=== PATIENT | male | born 1970 | race African-American/Black ===

== ENCOUNTER 2024-09-14 15:39 | Emergency (ER) | payer MEDICAID, SELFPAY ==
[2024-09-14 15:41] VITALS: BP 148/107; PULSE 74; RESP 16; TEMP 36.6; O2SAT 98; BMI 32.6
--- NOTE | 2024-09-14 16:12 | EX.ED.VIS.EY ---
HPI <ENZO Clark - Last Filed: 09/14/24 18:18> History of Present Illness Chief Complaint: Eye Problem Narrative Narrative: Patient presenting today with bilateral eye redness, pain, and clear-colored discharge. He reports that he developed itchiness to his bilateral eyes at the beginning of August, he saw his business excellence leader on 08/27 who thought that he could be having an allergic reaction to one of the eyedrops he uses for his cataracts, they then switched to the medication. Around the second week of August his eyes became red and he had increased clear discharge, he went to urgent care and was diagnosed with conjunctivitis and was placed on ofloxacin drops which he has been taking for a week. He reports that he did see his eye doctor again earlier this week who told him to continue taking the eyedrops but overall were not too concerned. He followed back up at urgent care today because he has had no improvement of his symptoms and they encouraged him to come here for evaluation. He does not wear contact lenses. He reports slight pain and blurred vision to the right eye. [facility] <ENZO Clark - Last Filed: 09/14/24 18:18> [facility] Medical History Diabetes HTN (hypertension) Heart disease Home Medications ?Medication ?Instructions ?Recorded ?Last Taken ?Type hydrocodone-acetaminophen 5-325mg 1 tab PO Q4H PRN PRN Pain 2 days 09/14/24 Unknown Rx 5mg-325mg #6 TABLETS hydrocodone-acetaminophen 5-325mg 1 tab PO Q4H PRN PRN Pain 2 days 09/14/24 Unknown Rx 5mg-325mg #6 TABLETS Allergy/AdvReac Type Severity Reaction Status Date / Time bee pollen Allergy Intermediate Anaphylaxis Verified 09/14/24 15:40 Social History Smoking Status: Former smoker ROS <ENZO Clark - Last Filed: 09/14/24 18:18> ROS ED Constitutional Constitutional ED: Denies chills, fever(s) or sweats Eyes Eyes: Reports blurry vision; Denies diplopia Cardiovascular Cardiovascular: Denies chest pain Respiratory/Chest Respiratory/Chest: Denies dyspnea Gastrointestinal Gastrointestinal: Denies abdominal pain, nausea or vomiting Musculoskeletal Musculoskeletal: Denies arthralgias or myalgias Integumentary Denies rash Neurologic Neurologic: Denies weakness EXAM <ENZO Clark - Last Filed: 09/14/24 18:18> Physical Exam Const Vital Signs: 09/14/24 15:41 Temperature 97.8 F Temperature Source Temporal Pulse Rate 74 Respiratory Rate 16 Blood Pressure 148/107 H Blood Pressure Mean 120 Pulse Ox 98 Oxygen Delivery Method Room Air Positive well nourished, well developed and no apparent distress General Appearance ED: well developed HEENT Reports normocephalic and head/scalp atraumatic HEENT Narrative: Bilateral conjunctival injection, clear-colored discharge to the bilateral eyes, EOMs intact bilaterally, no periorbital edema or erythema. Mouth ED: Yes moist mucous membranes normal Eyes PERRL and EOMs intact bilaterally Neck full ROM and supple Chest Wall inspection of chest normal Resp normal respiratory effort and clear to auscultation bilaterally Cardio regular rate and regular rhythm GI soft to palpation, non-tender, non-distended and no masses Back/Spine normal ROM and normal to inspection Extremity normal to inspection and full ROM Neuro oriented x3, CN's II-XII intact bilaterally, moves all extremities, no focal motor deficits and no sensory deficits noted Sensorium / Orientation: awake and alert Psych mental status grossly normal and thought process normal Skin no rashes or lesions noted and no wounds MDM <ENZO Clark - Last Filed: 09/14/24 18:18> [facility] MDM Narrative Medical decision making narrative: Patient presenting today due to concerns for erythema and increased watery discharge to the bilateral eyes. He has seen his eye doctor for this, they thought that he was possibly having an allergic reaction and switched one of his eyedrop medications. He then saw urgent care once his eyes became red and he began having discharge and they treated him for conjunctivitis with ofloxacin drops which she has been taking for a week. His symptoms have not gotten any better and they recommended he come in today for evaluation. CT scan of the orbits will be obtained, we will speak with ophthalmology. He reports that his eye pressures were checked earlier this week and were normal. Visual acuity was checked here, it was 20/30 on the right, 20/15 on the left, 20/[address] scan shows mild right facial and right periorbital subcutaneous edema. I did speak with on-call business excellence leader, Dr. Juarez, he recommended that patient be seen tomorrow by either his business excellence leader or him. I then spoke with a doctor from [facility] where patient goes, they are able to see him tomorrow. He will be discharged home in stable condition. I have personally performed a face to face assessment of the patient and have reviewed the DEANNA Note. I performed a substantive portion of the visit including all aspects of the following. My beasley findings include: History is [patient presents with bilateral eye redness and swelling that started 3 weeks ago. Patient had been seen at urgent care and was started on ofloxacin eyedrops and initially was doing it every 4 hours then he was told by his eye doctor to do it every hour. He just ran out of his antibiotic eyedrops. Patient was seen 4 days ago by his eye doctor and apparently had his eye pressure checked there was no evidence of glaucoma and he is currently being evaluated for cataract surgery. Patient complains of pain in the right eye with movement. He complains of a burning sensation. He describes tearing from both eyes. He complains of photophobia bilaterally. He denies trauma to his eyes or chemicals in his eyes.] Exam is [VELIA, EOMI. patient has pain with movement of the right eye when looking to the left but he is able to move the eye. Cornea are all clear. He does have diffuse conjunctival erythema bilaterally with tearing. He does have photophobia bilaterally. Cranial nerves II through XII grossly intact. TMs clear. Mucous membranes moist. No adenopathy. Cardiovascular-regular rate and rhythm without murmur or ectopy Lungs-clear to auscultation, chest wall stable without crepitus or subcu emphysema Abdomen-normoactive bowel sounds, soft, nontender, no rebound or rigidity, no peritoneal signs. Extremities-intact ?4, normal range of motion, normal pulses, atraumatic] Medical Decison Making [patient with significant conjunctival erythema as well as photophobia and painful movements with the right eye. CT scan of the orbits without contrast ordered showed just some edema of the right face and superficial structures of the right orbit. No evidence of other significant findings. We did discuss case with ophthalmology on-call as well as patient's ophthalmology group and they did recommend close follow-up tomorrow and repeat evaluation. This point it is unclear if patient has an iritis or potentially allergic conjunctivitis. Will offer him pain medication until he can be seen tomorrow. Visual acuity unremarkable.] Other additions or changes: [None] <Dr. Beatris De Leon, DO - Last Filed: 09/14/24 22:29> [facility] Narrative Medical decision making narrative: Patient presenting today due to concerns for erythema and increased watery discharge to the bilateral eyes. He has seen his eye doctor for this, they thought that he was possibly having an allergic reaction and switched one of his eyedrop medications. He then saw urgent care once his eyes became red and he began having discharge and they treated him for conjunctivitis with ofloxacin drops which she has been taking for a week. His symptoms have not gotten any better and they recommended he come in today for evaluation. CT scan of the orbits will be obtained, we will speak with ophthalmology. He reports that his eye pressures were checked earlier this week and were normal. I have personally performed a face to face assessment of the patient and have reviewed the DEANNA Note. I performed a substantive portion of the visit including all aspects of the following. My beasley findings include: History is [patient presents with bilateral eye redness and swelling that started 3 weeks ago. Patient had been seen at urgent care and was started on ofloxacin eyedrops and initially was doing it every 4 hours then he was told by his eye doctor to do it every hour. He just ran out of his antibiotic eyedrops. Patient was seen 4 days ago by his eye doctor and apparently had his eye pressure checked there was no evidence of glaucoma and he is currently being evaluated for cataract surgery. Patient complains of pain in the right eye with movement. He complains of a burning sensation. He describes tearing from both eyes. He complains of photophobia bilaterally. He denies trauma to his eyes or chemicals in his eyes.] Exam is [VELIA, EOMI. patient has pain with movement of the right eye when looking to the left but he is able to move the eye. Cornea are all clear. He does have diffuse conjunctival erythema bilaterally with tearing. He does have photophobia bilaterally. Cranial nerves II through XII grossly intact. TMs clear. Mucous membranes moist. No adenopathy. Cardiovascular-regular rate and rhythm without murmur or ectopy Lungs-clear to auscultation, chest wall stable without crepitus or subcu emphysema Abdomen-normoactive bowel sounds, soft, nontender, no rebound or rigidity, no peritoneal signs. Extremities-intact ?4, normal range of motion, normal pulses, atraumatic] Medical Decison Making [patient with significant conjunctival erythema as well as photophobia and painful movements with the right eye. CT scan of the orbits without contrast ordered showed just some edema of the right face and superficial structures of the right orbit. No evidence of other significant findings. We did discuss case with ophthalmology on-call as well as patient's ophthalmology group and they did recommend close follow-up tomorrow and repeat evaluation. This point it is unclear if patient has an iritis or potentially allergic conjunctivitis. Will offer him pain medication until he can be seen tomorrow. Visual acuity unremarkable.] Other additions or changes: [None] Discharge Plan Triage Chief Complaint: Eye Problem ED Midlevel Provider: Tricia Horton ED Provider: Beatris De Leon Dx/Rx/DC Orders Clinical Impression: Conjunctivitis Instructions: ED Conjunctivitis, Nonspecific Prescriptions: New hydrocodone-acetaminophen 5-325 mg tablet 1 tab PO Q4H PRN PRN (Reason: Pain) 2 Days Qty: 6 0RF hydrocodone-acetaminophen 5-325 mg tablet 1 tab PO Q4H PRN PRN (Reason: Pain) 2 Days Qty: 6 0RF Primary Care Provider: Cosmo Gupta Referrals: Cosmo Gupta MD [[facility]] - Activity Restrictions/Additional Instructions: Please follow-up with your business excellence leader tomorrow. They can see you at the [place] location in the morning or the [place] location in the afternoon. The addresses are: [place] location: [address] [place] [address], [id number] [place] location: [address] [place] [address], [id number] Print Language: Romanian Disposition Disposition: Home, Self Care Discharge Date/Time: 09/14/24 18:20
--- NOTE | 2024-09-14 16:17 | CT_ITS ---
INDICATION: eye pain, redness EXAMINATION: CT IAC TEMPORAL BONES - CT IAC/PF/Orbit/Sella W/O Contrast Injection TECHNIQUE: Routine noncontrast CT protocol was performed of the internal auditory canals and temporal bones. 2-D reformats were performed by the technologist. The protocol utilizes one or more of the following dose reduction techniques: automated exposure control, adjustment of mA and/or kV according to patient size,and/or use of iterative reconstruction technique. IV Contrast dosage and agent: None. RADIATION DOSAGE (If Supplied By Facility): CTDIvol = ( 29.38 ) mGy, DLP = ( 385.84 ) mGycm COMPARISON: FINDINGS: SUPERFICIAL SOFT TISSUES: Mild right facial and right periorbital subcutaneous edema. MASTOID AIR CELLS: Well aerated, unremarkable. EXTERNAL AUDITORY CANALS: Clear. MIDDLE EAR CAVITIES: Well aerated. Ossicles and scutum intact. INTERNAL AUDITORY CANALS: Unremarkable bilateral internal auditory canals. No osseous erosion or widening of the canal. INNER EAR: Unremarkable cochlea, vestibule and semicircular canals. ORBITS: Normal orbital contents. No collection or mass. CT/Orb Sella Post Fossa Ear w/o IMPRESSION: Mild right facial and right periorbital subcutaneous edema. Electronically Signed: Wilfred Reagan DO at 17:31 EST Reading Location ID and State: [facility] / [place] Tel [phone], Service support ,
[2024-09-14 18:19] VITALS: BP 140/98; PULSE 79; RESP 16; TEMP 36.6; O2SAT 98
== END 2024-09-14 18:20 | disposition home or self-care (01) ==
PROVIDERS: Emergency Provider Emergency Medicine; PCP Internal Medicine; Visit Provider Emergency Medicine
DX: H10.9 Unspecified conjunctivitis (principal); E11.9 Type 2 diabetes mellitus without complications; I10 Essential (primary) hypertension; Z87.891 Personal history of nicotine dependence
CPT/HCPCS: 70480; 99283

== ENCOUNTER 2025-07-26 10:36 | Emergency (ER) | payer MEDICAID, SELFPAY ==
[2025-07-26 10:38] VITALS: BP 106/77; PULSE 62; RESP 14; TEMP 36.5; O2SAT 100; BMI 35.4
[2025-07-26 10:43] VITALS: BP 106/77; PULSE 65; RESP 16; TEMP 36.6; O2SAT 100; BMI 35.4
--- NOTE | 2025-07-26 10:50 | RAD_ITS ---
PROCEDURE: CHEST 1 VIEW (PORTABLE) 07/26/2025 REASON FOR EXAM: HYPOTENSION TECHNIQUE: Frontal view of the chest. COMPARISON: None FINDINGS: There is cardiomegaly with mild central vascular congestion. There is no focal infiltrate or consolidation. There is no pneumothorax or effusion. There is no acute bony abnormality. Aortic calcifications are visible. RAD/Chest 1 View (Portable) IMPRESSION: There is cardiomegaly with mild central vascular congestion. Reading Location: [place]
--- NOTE | 2025-07-26 11:01 | EX.ED.DYSGE1 ---
HPI History of Present Illness Chief Complaint: Hypotension Informant: patient Narrative Narrative: Patient is a 54-year-old male with history of chronic atrial fibrillation, chronic back pain (sciatic nerve pain in the left) and frequent falls as well as diabetes mellitus presenting with near syncopal episode at the doctor's office today. He was in the office and states his blood pressure went down to the 70s over 57 and the recheck was 60s over 40s. He was sent to the ER via EMS from his PCP office. Patient tells me that he started to feel better. He states that he has been out of his medicines for couple months and has appointment today. He states that he has been laid up in bed for about 2 months because of his pain and is smoking again. He has been alternating ibuprofen and Tylenol for his pain. He notes that sometimes he gets pain that is so bad that it causes him to lose control of his bowels or bladder. He states that at 1 point they thought he needed surgery but then his pain was getting better so that they did not. He notes that the symptoms are going on for months and none of this is acute today. States the pain is worse in his left lower back and radiates down his left leg Per EMS patient's blood pressure was 113/75. Patient tells me that he follows with cardiology through [facility]. I spoke with patient's PCP, Dr. Gupta. He states this patient has a history of noncompliance and frequent missed visits. Plan was to refer him to pain management with a low blood pressure and I did recommend going to the ER. No other recommendations or history provided at this time. [facility] Medical History Diabetes HTN (hypertension) Heart disease Home Medications ?Medication ?Instructions ?Recorded ?Last Taken ?Type hydrocodone-acetaminophen 5-325mg 1 tab PO Q4H PRN PRN Pain 2 days 09/14/24 Unknown Rx 5mg-325mg #6 TABLETS hydrocodone-acetaminophen 5-325mg 1 tab PO Q4H PRN PRN Pain 2 days 09/14/24 Unknown Rx 5mg-325mg #6 TABLETS hydrocodone-acetaminophen 5-325mg 1 tab PO Q6H PRN PRN Pain 3 days 07/26/25 Unknown Rx 5mg-325mg #12 TABLETS Allergy/AdvReac Type Severity Reaction Status Date / Time hops Allergy Severe Anaphylaxis Verified 07/26/25 10:45 bee pollen Allergy Intermediate Anaphylaxis Verified 07/26/25 10:45 Social History Smoking Status: Current every day smoker tobacco type: cigarettes ROS ROS ED Constitutional Constitutional ED: Denies chills or fever(s) Eyes Eyes: Denies change in vision Cardiovascular Cardiovascular: Denies chest pain Musculoskeletal Musculoskeletal: Reports back pain; Denies arthralgias Integumentary Denies rash Neurologic Neurologic: Reports weakness; Denies headache(s) or paresthesias Hematologic/Lymphatic Hematologic/Lymphatic: Denies anemia EXAM Physical Exam Const Vital Signs: 07/26/25 10:38 07/26/25 10:43 07/26/25 10:48 Temperature 97.7 F L 97.9 F Temperature Source Temporal Oral Pulse Rate 62 65 Pulse Rate [Lying] Pulse Rate [Sitting (for 1 minute prior to obtaining)] Pulse Rate [Standing (for 1 minute prior to obtaining)] Respiratory Rate 14 16 Respiratory Pattern Normal Blood Pressure 106/77 106/77 Blood Pressure [Lying] Blood Pressure [Sitting (for 1 minute prior to obtaining)] Blood Pressure [Standing (for 1 minute prior to obtaining)] Blood Pressure Mean 86 86 Blood Pressure Mean [Lying] Blood Pressure Mean [Sitting (for 1 minute prior to obtaining)] Blood Pressure Mean [Standing (for 1 minute prior to obtaining)] Pulse Ox 100 100 Oxygen Delivery Method Room Air Room Air 07/26/25 12:37 07/26/25 14:00 07/26/25 14:22 Temperature Temperature Source Pulse Rate 77 66 Pulse Rate [Lying] 66 Pulse Rate [Sitting (for 1 minute prior to obtaining)] 68 Pulse Rate [Standing (for 1 minute prior to obtaining)] 68 Respiratory Rate 16 17 Respiratory Pattern Blood Pressure 114/85 H 162/90 H Blood Pressure [Lying] 118/84 H Blood Pressure [Sitting (for 1 minute prior to obtaining)] 118/89 H Blood Pressure [Standing (for 1 minute prior to obtaining)] 133/95 H Blood Pressure Mean 94 114 Blood Pressure Mean [Lying] 95 Blood Pressure Mean [Sitting (for 1 minute prior to obtaining)] 98 Blood Pressure Mean [Standing (for 1 minute prior to obtaining)] 107 Pulse Ox 99 95 Oxygen Delivery Method Room Air Positive well nourished and well developed General Appearance ED: well developed and NAD HEENT Reports dry mucous membranes Negative for trauma Mouth ED: Yes dry mucous membranes Mouth: dry mucous membranes Eyes PERRL and EOMs intact bilaterally General Eye ED: Negative for pale conjunctiva Neck supple and no JVD Chest Wall inspection of chest normal and palpation of chest normal Resp normal respiratory effort and clear to auscultation bilaterally Cardio regular rate, regular rhythm and no murmurs GI normal to inspection, nondistended, normoactive bowel sounds and non-tender Extremity normal to inspection General Extremety ED: Negative for edema General Extremity: Negative for edema Neuro oriented x3 Neuro Narrative: Sensation intact to light touch to the bilateral extremities. 5 out of 5 strength of extremities however he has diminished strength with dorsiflexion and plantarflexion of the left foot compared to the right. Sensorium / Orientation: alert Motor Exam: general weakness Psych mental status grossly normal Skin no rashes or lesions noted and no wounds MDM MDM MDM Narrative Medical decision making narrative: Patient evaluated for low blood pressure prior to arrival. EMS report shows initial blood pressure was 80 over palp but repeat blood pressure was 113/75. Complained of feeling weak and dizzy. Patient's blood pressure improved in the ER however he was given a 500 cc bolus given he does have a cardiac history. Blood pressure normalizes in the emergency room. He states he is feeling much better. Workup including CBC, CMP, lactate, high-sensitivity troponin, lipase and urinalysis is obtained. EKG shows atrial fibrillation with left axis deviation LVH with T wave inversions in 1, aVL and V6. No prior EKG available for comparison. Initial high-sensitivity troponin is 33 however on repeat it is 26. This is not consistent with ACS but it is downtrending. He is rate controlled in the ER and does not require any type of emergent cardioversion for his atrial fibrillation. In addition it would be ill-advised because he has not been anticoagulated recently. Patient does have an episode of vomiting in the emergency room and is given Zofran for this. Chest x-ray reviewed myself as well as radiology does not show any acute process but does show some cardiomegaly with mild central vascular congestion. Given that he has 100% on room air low suspicion for decompensated heart failure. He clinically does not appear fluid overloaded. Patient given fentanyl however he declines. He is then [place] with significant improvement of his back pain. On repeat evaluation he is feeling much better. On repeat evaluation he is feeling back to baseline. Orthostatics are obtained and negative. Creatinine is elevated at 1.61 however chart review through [facility] shows this is near his baseline and his creatinine in February of this year was 1.46. I do not think he has an [place]. Discussed option of admission for the patient given his hypotension prior to arrival however patient would prefer to go home. Given that his workup is largely at his baseline and he is no longer hypotensive in the ER feel this is reasonable. And counseled to follow-up outpatient with primary care and pain management as appropriate discussed. Will work with PCP about restarting his medications. Patient encouraged return to emergency room should he have worsening of his symptoms. I suspect patient likely had a vagal episode associated with his back pain and some associated deconditioning as he has been laying around in bed for the past 2 months. Lab Data Attestation: I reviewed the patient's lab results. Labs: Laboratory Results - last 24 hr 07/26/25 07/26/25 07/26/25 10:41 10:59 10:59 WBC 8.2 RBC 6.07 Hgb 16.6 H Hct 49.1 MCV 80.9 MCH 27.3 MCHC 33.8 RDW Std Deviation 42.0 RDW Coeff of Michelle 14.6 Plt Count 342 MPV 9.4 Immature Gran % (Auto) 0.100 Neut % (Auto) 39.6 L Lymph % (Auto) 46.1 H Lassen % (Auto) 8.7 Eos % (Auto) 4.9 Baso % (Auto) 0.6 Absolute Neuts (auto) 3.2 Absolute Lymphs (auto) 3.76 Nucleated RBC % 0 Sodium 139 Potassium 3.8 Chloride 104 Carbon Dioxide 19.0 L Anion Gap 16 H BUN 18 Creatinine 1.61 H Estim Creat Clear Calc 71.97 Est GFR (MDRD) Non-Af 50 L BUN/Creatinine Ratio 11.1 Glucose 149 H Lactic Acid 2.2 H* Calcium 9.2 Total Bilirubin 0.72 AST 17 ALT 14 Alkaline Phosphatase 64 Troponin T High Sens 33 H Troponin T Hi Sens 2 Hr Total Protein 7.1 Albumin 4.1 Globulin 3.1 Albumin/Globulin Ratio 1.3 Lipase 27 28 Urine Color Urine Clarity Urine pH Ur Specific [place] Urine Protein Urine Glucose (UA) Urine Ketones Urine Occult Blood Urine Nitrite Urine Bilirubin Urine Urobilinogen Ur Leukocyte Esterase Urine RBC Urine WBC Ur Squamous Epith Cells Urine Bacteria Urine Mucus POC Glucose 159 H 07/26/25 07/26/25 12:19 13:34 WBC RBC Hgb Hct MCV MCH MCHC RDW Std Deviation RDW Coeff of Michelle Plt Count MPV Immature Gran % (Auto) Neut % (Auto) Lymph % (Auto) Lassen % (Auto) Eos % (Auto) Baso % (Auto) Absolute Neuts (auto) Absolute Lymphs (auto) Nucleated RBC % Sodium Potassium Chloride Carbon Dioxide Anion Gap BUN Creatinine Estim Creat Clear Calc Est GFR (MDRD) Non-Af BUN/Creatinine Ratio Glucose Lactic Acid Calcium Total Bilirubin AST ALT Alkaline Phosphatase Troponin T High Sens Troponin T Hi Sens 2 Hr 26 H Total Protein Albumin Globulin Albumin/Globulin Ratio Lipase Urine Color Yellow Urine Clarity Clear Urine pH 6.5 Ur Specific [place] 1.010 Urine Protein 15 H Urine Glucose (UA) 1000 H Urine Ketones Negative Urine Occult Blood 50 H Urine Nitrite Negative Urine Bilirubin Negative Urine Urobilinogen Normal Ur Leukocyte Esterase Negative Urine RBC 0-5 SEEN Urine WBC 0 SEEN Ur Squamous Epith Cells 0 SEEN Urine Bacteria 0 SEEN Urine Mucus 0 SEEN POC Glucose Radiography Chest X-Ray - ED: 1 View, Read by ED Physician, Read by Radiologist, Chronic Changes and Cardiomegaly Diagnostic Testing: Clinical Impression(s) from Imaging Studies Chest X-Ray 07/26/25 10:50 IMPRESSION: There is cardiomegaly with mild central vascular congestion. [facility] R[facility] Rhythm Strip: A-fib Rate: 66 Ectopy: None EKG Initial EKG: Attestation: I personally reviewed and interpreted this EKG as follows: Interpretation: Atrial Fibrillation Comments: Atrial fibrillation at a rate of 66 beats per minutes Left axis deviation LVH with repolarization abnormalities T wave version 1, aVL and V6 No prior EKG available for comparison Management Discussion w/another healthcare provider: PCP Discharge Plan Triage Chief Complaint: Hypotension ED Provider: Abi Ellison Dx/Rx/DC Orders Clinical Impression: Near syncope, Acute on chronic back pain, Chronic renal insufficiency, Transient hypotension, Atrial fibrillation Instructions: ED Back Pain (Acute or Chronic), ED Near-Fainting, Uncertain Cause Prescriptions: New hydrocodone-acetaminophen 5-325 mg tablet 1 tab PO Q6H PRN PRN (Reason: Pain) 3 Days Qty: 12 0RF No Action hydrocodone-acetaminophen 5-325 mg tablet 1 tab PO Q4H PRN PRN (Reason: Pain) 2 Days Qty: 6 0RF hydrocodone-acetaminophen 5-325 mg tablet 1 tab PO Q4H PRN PRN (Reason: Pain) 2 Days Qty: 6 0RF Primary Care Provider: Cosmo Gupta Referrals: Cosmo Gupta MD [Primary Care Provider, Internal Medicine] Activity Restrictions/Additional Instructions: Blood pressure improved with fluids. Your orthostatic vital signs are now normal. You been given short course of pain medication to help with your pain control. Make sure you are drinking enough fluids. Follow-up with pain management as you discussed with your primary care doctor and continue to follow-up with your primary care doctor for refills of your medications. If you have worsening symptoms please do not hesitate to return to the emergency room Print Language: Hungarian Disposition Disposition: Home, Self Care
[2025-07-26 11:08] LABS: Hematocrit 49.1 % (40-54); Hemoglobin 16.6 g/dL (13.0-16.5); Immature Granulocytes Count 0.010 X10^3/uL (0.0-0.0); Mean Corp Hgb Conc 33.8 g/dL (32-36); Mean Corpuscular Volume 80.9 fL (80-94); Mean Platelet Vol. 9.4 fl (6.2-12.0); NRBC Flagged by Analyzer 0 % (0-5); Platelet Count 342 K/mm3 (150-450); RBC Distribution Width CV 14.6 % (11.6-14.6); RBC Distribution Width SD 42.0 fl (35.1-43.9); Red Blood Count 6.07 M/mm3 (4.6-6.2); White Blood Count 8.2 K/mm3 (4.4-11.0)
--- NOTE | 2025-07-26 11:10 | EKG12_ITS ---
Test Reason : Blood Pressure : */* mmHG Vent. Rate : 66 BPM Atrial Rate : * BPM P-R Int : * ms QRS Dur : 94 ms QT Int : 424 ms P-R-T Axes : * -36 156 degrees QTcB Int : 444 ms Atrial fibrillation Left axis deviation Left ventricular hypertrophy with repolarization abnormality ( R in aVL ) Abnormal ECG Confirmed by TALAT EMMANUEL, FRANK ([id number]), editor sound SOPHIA BARKER ([id number]) on 07/30/2025 6:00:20 AM Referred By: KISHORE Confirmed By: FRANK GILLILAND MD
[2025-07-26] MEDS: 0.9% Normal Saline (500mL Bag) 500 ML 1000 ML IV (11:12)
[2025-07-26 11:31] LABS: Lipase 28 U/L (13-75); Troponin T High Sensitivity 33 ng/L (<=22)
[2025-07-26 11:32] LABS: AST(SGOT) 17 U/L (<=37); Alanine Aminotransfer ALT/SGPT 14 U/L (<=46); Albumin, Serum 4.1 g/dL (3.5-5.0); Alkaline Phosphatase 64 U/L (40-129); Anion Gap 16 (5-15); BUN 18 mg/dL (4-19); BUN/Creat Ratio 11.1 RATIO (10-20); Calcium,Total 9.2 mg/dL (7.6-11.0); Carbon Dioxide 19.0 mmol/L (21.0-32.0); Chloride 104 mmol/L (98-108); Estimated Creatinine Clearance 71.97 ml/min (50-250); Globulin 3.1 g/dL (2.2-4.2); Glucose 149 mg/dL (70-99); Lipase 27 U/L (13-75); Potassium 3.8 mmol/L (3.3-5.1)
--- NOTE | 2025-07-26 11:50 | ED.RN ---
lactate 2.2
[2025-07-26 12:27] LABS: Mucous, Urine 0 SEEN /hpf (<or=2+); Squamous Epithelial Cells - UA 0 SEEN /hpf (0-5)
[2025-07-26 12:32] LABS: Color, Urine Yellow (Yellow); Glucose, Dipstick 1000 mg/dl (Normal); Ketone-Dipstick Negative (Negative); Leukocyte Esterase-Dipstick Negative /ul (Negative); Nitrite-Dipstick Negative (Negative); Occult Blood-Urine 50 /ul (Negative); Protein-Dipstick 15 mg/dl (Negative); Specific Gravity, Urine 1.010 (1.002-1.030); Urine Bilirubin Dipstick Negative (Negative)
[2025-07-26 12:37] VITALS: BP 114/85; PULSE 77; RESP 16; O2SAT 99
[2025-07-26 12:42] LABS: Red Blood Cells-Urine 0-5 SEEN /hpf (0-5)
[2025-07-26] MEDS: HYDROcodone Bitartrate/Apap 5/325 Tablet PO (13:57)
[2025-07-26 14:00] VITALS: BP 162/90; PULSE 66; RESP 17; O2SAT 95
[2025-07-26 14:08] LABS: Troponin T High Sens 2 HR 26 ng/L (<=22)
[2025-07-26 14:22] VITALS: BP 118/84; BP 118/89; BP 133/95; PULSE 66; PULSE 68
[2025-07-26 15:03] LABS: Reflex Lactate? Y
[2025-07-26 15:13] VITALS: BP 128/74; PULSE 68; RESP 15; TEMP 37.1; O2SAT 97
== END 2025-07-26 15:14 | disposition home or self-care (01) ==
PROVIDERS: Emergency Provider Emergency Medicine; PCP Internal Medicine; Visit Provider Emergency Medicine
DX: R55 Syncope and collapse (principal); I48.91 Unspecified atrial fibrillation; E11.22 Type 2 diabetes mellitus with diabetic chronic kidney disease; M54.9 Dorsalgia, unspecified; I12.9 Hypertensive chronic kidney disease with stage 1 through stage 4 chronic kidney disease, or unspecified chronic kidney disease; G89.29 Other chronic pain; R03.1 Nonspecific low blood-pressure reading; N18.9 Chronic kidney disease, unspecified; R53.1 Weakness; F17.210 Nicotine dependence, cigarettes, uncomplicated; R29.6 Repeated falls
CPT/HCPCS: 71045; 80053; 81001; 82962; 83605; 83690; 84484; 85025; 93005; 96361; 96374; 96375; 99285; A4216; J2405